=== PATIENT | male | born 1950 | race Caucasian/White ===

== ENCOUNTER 2016-08-24 17:35 | Emergency (ER) | payer MEDICARE, BC ==
[~2016-08-24] VITALS: Ht 193 cm; Wt 127.3 kg
[~2016-08-24 17:35] MED LIST: ALPRAZOLAM0.25 MG PO; ASPIRIN 32325 MG/TAB PO; ASPIRIN 81M81 MG/TA2; ASPIRIN E.C. 8181 MG PO; BETAPACE 80MG80 MG PO; CELEXA 20MG20 MG/TAB PO; CEPHALEXIN500 M1 PO; CITALOPRAM20 MG PO; CO Q-1010 MG PO; ENALAPRIL MALE2.5 MG PO; FLEXERIL10 MG PO; FLOMAX 0.40.4 MG/CAP PO; IBUPROFEN MODE200 MG PO; LIPITOR 80MG80 MG PO; LOPRESSOR 225 MG/TAB PO; METOPROLOL50 MG PO; NIASPAN500 MG PO; PERCOCET 325 MG1 TA2 PO; PHENERGAN 25 TA25 MG PO; PLAVIX 75MG TAB75 MG PO; XANAX0.5 MG PO; ZESTRIL2.5 MG PO
[2016-08-24 17:37] VITALS: TEMP 97.7
[2016-08-24 18:14] LABS: PH 5 (5-8); SQUAMOUS EPITHELIAL None Seen /hpf; URINE APPEARANCE Hazy; URINE BACTERIA None Seen /hpf; URINE BILIRUBIN Negative (NEGATIVE); URINE BLOOD 3+ (NEGATIVE); URINE COLOR Yellow; URINE GLUCOSE Negative (NEGATIVE); URINE KETONE Negative (NEGATIVE); URINE RBC >50 /hpf
[2016-08-24 18:22] LABS: BASO # 0.1 (0.0-0.2); BASO % 0.5 % (0.0-2.0); EOS # 0.2 (0.0-0.7); EOS % 1.3 % (0-4.0); GRAN # 10.7 (1.4-6.5); GRAN % 81.6 % (42.2-75.2); HEMATOCRIT 43.8 % (42.0-52.0); HEMOGLOBIN 14.6 g/dl (13.5-18.0); LYMPH # 1.2 (1.2-3.4); LYMPH % 9.4 % (20.0-51.0); MEAN CELL VOLUME 91 fl (80.0-100.0); MEAN CORPUSCULAR HEMOGLOBIN 30 pg (27.0-31.0); MEAN CORPUSCULAR HGB CONC 33 g/dl (33.0-37.0); MEAN PLATELET VOLUME 9.7 fl (7.4-10.4); MONO # 0.9 (0.1-0.6); MONO % 6.7 % (1.7-9.3); PLATELET COUNT 254 K/mm3 (130-400); RED BLOOD COUNT 4.82 M/mm3 (4.20-5.60); REDCELL DISTRIBUTION WIDTH-CV 12.6 % (11.5-14.5); WHITE BLOOD COUNT 13.1 K/mm3 (4.8-10.8)
[2016-08-24] MEDS ORDERED: ASPI325T6 PO (18:27)
[2016-08-24] MEDS ORDERED: TOPROL XL 50MG50 MG PO (18:27)
[2016-08-24] MEDS ORDERED: ZOLOFT 50MG50 MG PO (18:28)
[2016-08-24 18:30] LABS: CALCIUM 9.2 mg/dL (8.4-10.2); CREATININE, serum 1.02 mg/dL (0.66-1.25); POTASSIUM 3.8 mmol/L (3.4-5.0)
[2016-08-24] MEDS ORDERED: FLOMAX 0.40.4 MG/CAP PO (19:31)
[2016-08-24] MEDS ORDERED: PERCOCET 325 MG1 TA2 PO (19:31)
[2016-08-24 20:00] VITALS: BP 121/68; PULSE 62
== END 2016-08-24 20:00 | disposition home or self-care (01) ==
LOC: COL.ER 17:35
PROVIDERS: Emergency Medicine
DX: N20.2 Calculus of kidney with calculus of ureter (principal); Z87.442 Personal history of urinary calculi; I25.10 Atherosclerotic heart disease of native coronary artery without angina pectoris; I10 Essential (primary) hypertension; Z79.02 Long term (current) use of antithrombotics/antiplatelets
CPT/HCPCS: J1200; J2270; J2405; J7040

== ENCOUNTER 2016-08-26 15:54 | Emergency (ER) | payer MEDICARE, BC ==
[~2016-08-26] VITALS: Ht 193 cm; Wt 127.3 kg
[~2016-08-26 15:54] MED LIST changes: +ASPI325T6 PO; +TOPROL XL 50MG50 MG PO; +ZOLOFT 50MG50 MG PO
[2016-08-26 15:56] VITALS: BP 140/55; PULSE 55; TEMP 97.9
[2016-08-26 17:32] LABS: PH 5 (5-8); SQUAMOUS EPITHELIAL 0-2 /hpf; URINE APPEARANCE Clear; URINE BACTERIA None Seen /hpf; URINE BILIRUBIN Negative (NEGATIVE); URINE BLOOD 3+ (NEGATIVE); URINE COLOR Yellow; URINE GLUCOSE Negative (NEGATIVE); URINE KETONE Trace (NEGATIVE); URINE RBC >50 /hpf
[2016-08-26] MEDS ORDERED: PERCOCET 325 MG1 TA2 PO (17:52)
[2016-08-26] MEDS ORDERED: ULTRAM 50MG TAB50 MG PO (17:52)
[2016-08-26] MEDS ORDERED: ZOFRAN8 MG PO (17:52)
[2016-08-26] MEDS ORDERED: MACROBID 1100 MG/CAP PO (18:35)
== END 2016-08-26 18:30 | disposition home or self-care (01) ==
LOC: COL.ER 15:54
PROVIDERS: Emergency Medicine
DX: N20.2 Calculus of kidney with calculus of ureter (principal); Z87.442 Personal history of urinary calculi

== ENCOUNTER 2016-08-29 10:46 | Day surgery (SDC) | payer MEDICARE, BC ==
[~2016-08-29] VITALS: Ht 193 cm; Wt 128.4 kg
[~2016-08-29 10:46] MED LIST changes: +MACROBID 1100 MG/CAP PO; +ULTRAM 50MG TAB50 MG PO; +ZOFRAN8 MG PO
[2016-08-29] MEDS ORDERED: CO Q-1010 M1 PO (11:29)
[2016-08-29 12:34] VITALS: BP 114/70; PULSE 74; TEMP 98.1
[2016-08-29 17:21] VITALS: BP 124/60; PULSE 54; TEMP 98
== END 2016-08-29 18:27 | disposition home or self-care (01) ==
LOC: SDCO 10:46
DX: N20.1 Calculus of ureter (principal); I10 Essential (primary) hypertension; E78.5 Hyperlipidemia, unspecified
CPT/HCPCS: C1769; J0690; J1100; J1885; J2405; J2704; J3010; J7120; Q9967

== ENCOUNTER 2018-09-08 11:55 | Day surgery (SDC) | payer MEDICARE, BC ==
[~2018-09-08] VITALS: Ht 195.6 cm; Wt 132.7 kg
[~2018-09-08 11:55] MED LIST changes: -ASPI325T6 PO; +CO Q-1010 M1 PO; +CRESTOR20 MG PO; -LIPITOR 80MG80 MG PO
[2018-09-08 12:56] VITALS: BP 120/62; PULSE 62; TEMP 97.3
[2018-09-08] MEDS ORDERED: NORCO 325 MG-51 TAB PO (13:04)
[2018-09-08 14:43] VITALS: BP 142/63; PULSE 63; TEMP 98.7
--- NOTE | 2018-09-08 14:43 | NUR ---
Patient arrives back to [facility] alert, denies having any pain or nausea. Patient monitor applied, vital stable. Spouse brought to bedside. Patient given water and muffin.
[2018-09-08 15:00] VITALS: BP 137/63; PULSE 76; TEMP 98.7
--- NOTE | 2018-09-08 15:00 | NUR ---
Patient tolerates water and muffin without any complications. More water given to patient. Patient educated on the need to drink lots of water due to the stent placment. Vitals stable.
[2018-09-08 15:15] VITALS: BP 134/62; PULSE 58
--- NOTE | 2018-09-08 15:25 | NUR ---
Patient up to restroom at this time and is able to urinate without any difficulties.
--- NOTE | 2018-09-08 15:40 | NUR ---
Dimissal instructions gone over with patient and patient's spouse. Both verbalized understanding and all questions were answered.
== END 2018-09-08 15:45 | disposition home or self-care (01) ==
LOC: SDCO 11:55
DX: N20.1 Calculus of ureter (principal); I25.10 Atherosclerotic heart disease of native coronary artery without angina pectoris; E78.5 Hyperlipidemia, unspecified; I25.2 Old myocardial infarction; I10 Essential (primary) hypertension; Z95.5 Presence of coronary angioplasty implant and graft; Z87.442 Personal history of urinary calculi; Z79.899 Other long term (current) drug therapy; Z79.82 Long term (current) use of aspirin; Z82.49 Family history of ischemic heart disease and other diseases of the circulatory system; Z82.3 Family history of stroke; Z79.02 Long term (current) use of antithrombotics/antiplatelets; Z90.49 Acquired absence of other specified parts of digestive tract; F41.9 Anxiety disorder, unspecified
CPT/HCPCS: C1769; C2617; J0690; J1100; J1885; J2405; J2704; J3010; J7120; Q9967